=== PATIENT | female | born 1975 | race Caucasian/White ===

== ENCOUNTER 2016-11-26 10:39 | Emergency (ER) | payer MEDICAID, OTHER ==
[~2016-11-26] VITALS: Ht 175.3 cm; Wt 104.5 kg
[~2016-11-26 10:39] MED LIST: EFFE75CA PO; FERR324T4 PO; MULTCAP PO; PHEN100 PO; TOPA25TA8 PO
[2016-11-26 10:41] VITALS: BP 121/72; PULSE 74; RESP 20; TEMP 98.1; O2SAT 97
[2016-11-26] MEDS ORDERED: OSEL75 PO (12:15)
--- NOTE | 2016-11-26 12:17 | PD ---
HPI Chief Complaint: Cold / Flu Symptoms Time Seen by Provider: 12:12 Travel History International Travel<30 days: No Contact w/Intl Traveler<30days: No Traveled to known affect area: No History of Present Illness HPI 41-year-old female presents the emergency Department with 2 day history of fever , chills, myalgias, and diarrhea. Patient has decreased appetite but no nausea or vomiting. She has mild cough but no sore throat or headache. Patient states one at her work is ill with the same illness. She states a fever high of 102.4. She's been taking ibuprofen and Tylenol. She does not feel better today which is why she came into the emergency department. Patient has no known drug allergies. PFSH Past Medical History ADHD: Yes Anemia: Yes Anxiety: Yes Depression: Yes Cancer: No Cardiovascular Problems: Yes Diabetes: No Diminished Hearing: No Endocrine: Yes (HYPOGLYCEMIA) Genitourinary: No Neurologic: Yes Psychiatric: Yes Reproductive: No Respiratory: No Seizures: Yes (WHILE DETOXING-- LAST 2 DAYS X12, 1 AT [facility] AND 1 IN ED 2 ON 6N) ?: Not LMP: 11/19/16 : 2 Para: 3 Past Surgical History Abdominal Surgery: Yes (GASTRIC BYPASS 2002 ) Other Surgery: Yes (GASTRIC BYPASS) Social History Alcohol Use: No Tobacco Use: No Substance Use: Yes (PAST MARIJUANA, COCAINE, ADDERALL LAST YEAR, CURRENT WITH MS CONTIN) Allergies-Medications (Allergen,Severity, Reaction): Coded Allergies: No Known Allergies (Unverified , 10/07/12) Reported Meds & Prescriptions Reported Meds & Active Scripts Active Tamiflu (Oseltamivir Phosphate) 75 Mg Cap 75 Mg PO BID 5 Days Reported Dilantin 100 Mg Kapseals (Phenytoin Sodium) 100 Mg Caper 100 Mg PO Q8 Topamax (Topiramate) 25 Mg Tab 50 Mg PO DAILY Take TOPOMAX 50 mG by mouth once in the morning daily until 10/15/2012, then TOPOMAX 50 mG by mouth once in the morning and TOPOMAX 25 mG once in the evening before you go to sleep (from 10/16/2012 until 10/22/2012), then TOPOMAX 50 mG by mouth once in the morning and once in the evening. Ferrous Sulfate 325 Mg Tab 325 Mg PO TID Multi For Her (Multiple Vitamins W/ Minerals) Cap 1 Tab PO DAILY Effexor Xr (Venlafaxine HCl) 75 Mg Cap 300 Mg PO DAILY Review of Systems Except as stated in HPI: all other systems reviewed are Neg General / Constitutional: No: Fever Eyes: No: Visual changes HENT: Positive: Rhinitis, Rhinorrhea, Congestion, No: Headaches Cardiovascular: No: Chest Pain or Discomfort Respiratory: Positive: Cough, No: Shortness of Breath Gastrointestinal: Positive: Diarrhea, No: Nausea, Vomiting, Abdominal Pain Genitourinary: No: Dysuria Musculoskeletal: Positive: Myalgias, No: Pain Skin: No Rash Neurologic: No: Weakness Psychiatric: No: Depression Endocrine: No: Polydipsia Hematologic/Lymphatic: No: Easy Bruising Physical Exam Narrative GENERAL: Patient appears ill but not septic. SKIN: Warm and dry. No color. Normal turgor HEAD: Atraumatic. Normocephalic. EYES: Pupils equal and round. No scleral icterus. No injection or drainage. ENT: No nasal bleeding or discharge. Mucous membranes pink and moist. Pharynx appears mildly injected with no significant swelling or tonsillitis. TMs are clear. No sinus tenderness. Airway is patent. NECK: Trachea midline. No JVD. Supple nontender without lymphadenopathy. CARDIOVASCULAR: Regular rate and rhythm. RESPIRATORY: No accessory muscle use. Clear to auscultation. Breath sounds equal bilaterally. GASTROINTESTINAL: Abdomen soft, non-tender, nondistended. Hepatic and splenic margins not palpable. MUSCULOSKELETAL: Extremities without clubbing, cyanosis, or edema. No obvious deformities. NEUROLOGICAL: Awake and alert. No obvious cranial nerve deficits. Motor grossly within normal limits. Five out of 5 muscle strength in the arms and legs. Normal speech. PSYCHIATRIC: Appropriate mood and affect; insight and judgment normal. Data Data Last Documented VS Vital Signs Date Time Temp Pulse Resp B/P Pulse Ox O2 Delivery O2 Flow Rate FiO2 11/26/16 10:41 98.1 74 20 121/72 97 Room Air MDM Medical Decision Making Medical Screen Exam Complete: Yes Emergency Medical Condition: Yes Differential Diagnosis Febrile illness. Viral illness. Diarrhea. Presumed influenza. Narrative Course Patient is medically stable at time of exam. Patient is treated with Tamiflu 75 mg twice a day Patient take ibuprofen and Tylenol as needed. Patient is to rest and push fluids as discussed. Patient to return to the emergency department or follow with her primary care as needed. Work note is given. Diagnosis Primary Impression: Influenza Additional Impression: Diarrhea Qualified Code: R19.7 - Diarrhea, unspecified type Referrals: Primary Care Physician Patient Instructions: General Instructions Departure Forms: Work Release Enter return to work date: Nov 28, 2016 Additional Instructions: Patient is treated with Tamiflu 75 mg twice a day Patient take ibuprofen and Tylenol as needed. Patient is to rest and push fluids as discussed. Patient to return to the emergency department or follow with her primary care as needed. Work note is given. Med/Other Pt SpecificInfo: Prescription(s) given Scripts Oseltamivir (Tamiflu)75 Mg Cap75 Mg PO BID 5 Days Ref 0 Prov:Chaparro Coronel MD 11/26/16 Disposition: 01 DISCHARGE HOME Condition: Stable Wilmer Rodney Nov 26, 2016 12:14
== END 2016-11-26 12:34 | disposition home or self-care (01) ==
LOC: NEPB 10:39
DX: J11.1 Influenza due to unidentified influenza virus with other respiratory manifestations (principal); R19.7 Diarrhea, unspecified
CPT/HCPCS: 99283